=== PATIENT | female | born 1955 | race Hispanic/Latino ===

== ENCOUNTER → 2017-10-10 | Outpatient (CLI) | payer OTHER ==
[2017-10-10 05:54] LABS: HEMOGLOBIN A1C 6.1 % (4.0-6.0)
== END | disposition home or self-care (01) ==
LOC: LAB 00:17
PROVIDERS: ATTEND Internal Medicine Nephrology
DX: E11.9 Type 2 diabetes mellitus without complications (principal)
CPT/HCPCS: 36415; 80061; 83036

== ENCOUNTER 2020-09-14 21:00 | Inpatient (IN) | payer OTHER ==
[~2020-09-14] VITALS: Ht 162.6 cm; Wt 69.9 kg
[2020-09-14 21:22] LABS: BASOPHILS % (AUTO) 0.6 % (0.0-5.0); HEMATOCRIT 39.3 % (36-48); LYMPHOCYTES % (AUTO) 13.4 % (21.0-51.0); MEAN CORPUSCULAR HEMOGLOBIN 32.3 pg (27.0-33.0); MEAN CORPUSCULAR HGB CONC 33.6 g/dL (32.0-36.0); MEAN CORPUSCULAR VOLUME 96.1 fL (79-99); MONOCYTES % (AUTO) 7.3 % (3.0-13.0); NEUTROPHILS % (AUTO) 76.1 % (40.0-77.0); PLATELET COUNT (AUTO) 185 K/uL (130-400); RED BLOOD CELL COUNT(AUTO) 4.09 MIL/uL (4.00-5.50); RED CELL DISTRIBUTION WIDTH 12.4 % (11.0-15.5); WHITE BLOOD COUNT (AUTO) 10.6 K/uL (4.8-10.8)
[2020-09-14 21:31] LABS: CREATININE 0.9 mg/dL (0.5-1.5); POTASSIUM 3.9 mmol/L (3.5-5.1)
[2020-09-14] MEDS ORDERED: CLONIDINE HCL 0.1 MG TABLET ONE (21:33)
[2020-09-14 21:34] LABS: INR 1.07 (0.85-1.15); PROTHROMBIN TIME 11.4 SEC (9.6-11.6)
[2020-09-14 21:35] LABS: PARTIAL THROMBOPLASTIN TIME 20.4 SEC (26.3-35.5)
[2020-09-14 21:43] LABS: ALBUMIN 3.6 g/dL (3.5-5.0); BILIRUBIN,TOTAL 0.6 mg/dL (0.2-1.0)
[2020-09-14 22:21] LABS: APPEARANCE,URINE Clear (CLEAR); BILIRUBIN,URINE Negative (NEGATIVE); COLOR,URINE Yellow (YELLOW); GLUCOSE, URINE (UA) Negative (NEGATIVE); KETONES,URINE Negative (NEGATIVE); LEUKOCYTE ESTERASE ,URINE Negative (NEGATIVE); NITRATE,URINE Negative (NEGATIVE); OCCULT BLOOD,URINE Negative (NEGATIVE); PROTEIN,URINE Negative (NEGATIVE)
[2020-09-15] MEDS ORDERED: NITROGLYCERIN 1GM/1 INCH PACKET TD ONE (01:44)
[2020-09-15] MEDS ORDERED: ENOXAPARIN SODIUM 60 MG/0.6 ML SQ ONE (01:44)
[2020-09-15 06:15] VITALS: BP 159/77
[2020-09-15] MEDS ORDERED: DEXTROSE 50%-WATER 50 ML DISP.SYRIN IV PRN (07:00)
[2020-09-15] MEDS ORDERED: GLUCAGON 1MG KIT 1 MG ML IM PRN (07:00)
[2020-09-15] MEDS: INSULIN HUMULIN R 100 UNIT/ML 3ML SQ SCH ×4 (07:30→21:00)
[2020-09-15 08:00] VITALS: BP 133/74
[2020-09-15] MEDS ORDERED: GLIP5POW MC (08:21)
[2020-09-15] MEDS ORDERED: LISI-613 PO (08:21)
[2020-09-15] MEDS ORDERED: METOPROLOL TARTRATE 25 MG TAB PO SCH (08:30)
[2020-09-15] MEDS ORDERED: METOPROLOL TARTRATE 25 MG TAB ONE (08:37)
[2020-09-15] MEDS: ASPIRIN 325MG EC TAB 325 MG TABLET.DR PO SCH (08:41)
[2020-09-15] MEDS: ENOXAPARIN SODIUM 80 MG/0.8 ML SQ SCH ×2 (08:42→08:47)
[2020-09-15] MEDS: FAMOTIDINE/PF 20 MG/2 ML VIAL IV SCH ×2 (08:42→21:18)
[2020-09-15] MEDS ORDERED: ENOXAPARIN SODIUM 1 MG/KG SQ SCH (10:00)
[2020-09-15] MEDS: CLOPIDOGREL BISULFATE 75 MG TAB PO SCH (11:00)
[2020-09-15 11:58] VITALS: BP 145/77
--- NOTE | 2020-09-15 12:00 | NUR ---
DCP CM met with pt in room discussed dc plans. Pt is independent prior to admission, lives at home with spouse. Denies any equipments/services. Feels safe to go back home, still drives and works, spouse able to assist with transportation and needs as necessary. DC plan to home once stable. CM to continue to follow up. Addendum: 09/15/20 at 1558 by ANDREA EUBANKS LVN CM Amended: Links added.
[2020-09-15] MEDS: PHARMACY COMMUNICATION MISC SCH ×2 (12:15→14:15)
[2020-09-15] MEDS ORDERED: SODIUM CHLORIDE 0.9% 500ML 500 ML IV ONE (14:02)
[2020-09-15] MEDS: LISINOPRIL 20 MG TABLET PO SCH (14:49)
[2020-09-15] MEDS: METOPROLOL TARTRATE 25 MG TAB PO SCH ×2 (14:51→21:17)
[2020-09-15 15:47] VITALS: BP 129/71
[2020-09-15 20:05] VITALS: BP 118/67
[2020-09-15] MEDS ORDERED: ATORVASTATIN CALCIUM 20 MG TABLET PO SCH (21:00)
[2020-09-15 23:49] VITALS: BP 118/68
--- NOTE | 2020-09-15 23:56 | NUR ---
Pt's 2100 BS was 178, based on sliding scale pt needed 4units of Humulin but pt refused.
[2020-09-16] VITALS (10 sets, daily range): BP systolic 114–141; BP diastolic 67–93
[2020-09-16] MEDS: ASPIRIN 325MG EC TAB 325 MG TABLET.DR PO SCH (03:10)
[2020-09-16] MEDS: METOPROLOL TARTRATE 25 MG TAB PO SCH ×2 (03:15→09:00)
[2020-09-16 05:12] LABS: HEMATOCRIT 40.5 % (36-48); MEAN CORPUSCULAR HEMOGLOBIN 32.1 pg (27.0-33.0); MEAN CORPUSCULAR HGB CONC 33.3 g/dL (32.0-36.0); MEAN CORPUSCULAR VOLUME 96.2 fL (79-99); RED BLOOD CELL COUNT(AUTO) 4.21 MIL/uL (4.00-5.50); RED CELL DISTRIBUTION WIDTH 12.3 % (11.0-15.5); WHITE BLOOD COUNT (AUTO) 6.4 K/uL (4.8-10.8)
[2020-09-16 05:45] LABS: CREATININE 0.8 mg/dL (0.5-1.5); POTASSIUM 3.9 mmol/L (3.5-5.1)
[2020-09-16] MEDS ORDERED: LIDOCAINE HCL 2% 20ML ONE (07:24)
[2020-09-16] MEDS ORDERED: IOHEXOL-350 50ML VIAL IV ONE ×2 (07:24→08:57)
[2020-09-16] MEDS ORDERED: MIDAZOLAM HCL 1 MG/ML 2ML VIAL ONE (07:24)
[2020-09-16] MEDS ORDERED: IOHEXOL 350 MG/ML 100ML INFUS..BTL IV ONE (07:24)
[2020-09-16] MEDS ORDERED: FENTANYL CITRATE PF 50 MCG/1 ML 2ML VIAL ONE (07:24)
[2020-09-16] MEDS ORDERED: HEPARIN SODIUM 1000UNIT/ML 10ML VIAL ONE (07:24)
[2020-09-16] MEDS ORDERED: NITROGLYCERIN 2 MG/VIAL VIAL IV ONE (07:25)
[2020-09-16] MEDS ORDERED: NICARDIPINE HCL 25 MG/10 ML ML IV ONE (07:26)
[2020-09-16] MEDS: INSULIN HUMULIN R 100 UNIT/ML 3ML SQ SCH ×2 (07:30→11:30)
[2020-09-16] MEDS: ENOXAPARIN SODIUM 80 MG/0.8 ML SQ SCH (09:00)
[2020-09-16] MEDS ORDERED: SODIUM CHLORIDE 0.9% 1000ML 1,000 ML IV SCH (09:30)
--- NOTE | 2020-09-16 09:50 | NUR ---
RECEIVED PT FROM [facility] AAOX3, NO DISTRESS, NO BLEEDING FORM RIGHT RADIAL ACCESS. HEMOSTASIS ACHIEVED WITH BAND. IV PATENT, NO SWELLING.
[2020-09-16] MEDS ORDERED: ISOSORBIDE MONO 30MG TAB SR PO ONE (11:44)
[2020-09-16] MEDS: FAMOTIDINE/PF 20 MG/2 ML VIAL IV SCH (11:50)
[2020-09-16] MEDS: CLOPIDOGREL BISULFATE 75 MG TAB PO SCH (11:50)
[2020-09-16] MEDS: LISINOPRIL 20 MG TABLET PO SCH (11:54)
[2020-09-16] MEDS ORDERED: ISOSORBIDE MONO 30MG TAB SR PO SCH (11:57)
--- NOTE | 2020-09-16 14:30 | NUR ---
12mls of air removed from band band discontinued radial pulses present bilaterally, strong and regular. no bleeding.
--- NOTE | 2020-09-16 16:00 | NUR ---
6 HOURS OF HYDRATION COMPLETE IV OUT DISCONTINUED, NO BLEEDING.
--- NOTE | 2020-09-16 16:19 | NUR ---
PT D/C HOME USING TEACH BACK TECHNIQUE RE; NEW MEDS HOME MEDS, S/S TO WATCH FOR AND WHEN TO CALL MD OR 911. Follow up with Dr. Vargas in 1-2 weeks. follow up with your primary doctor in 2-4 days. for transition of care. Make sure to monitor for any signs of bleeding and if bleeding occurs apply direct pressure and call 911. If you experience any chest pain or shortness of breath that does not resolve with rest call 911. make sure to buy prescription given to you by your quality cloth tester at the time of discharge. Call him with any other questions. IV OUT, NO BLEEDING, NO BLEEDING FROM RIGHT RADIAL ARTERY 4X4S AND TAPE APPLIED, BILATERAL RADIAL ARTERY STRONG AND REGULAR. TELE REMOVED. PATIENT AAOX3, DENIES ANY QUESTIONS AT THIS TIME, AT BEDSIDE ALSO ATTENTIVE OF D/C INSTRUCTIONS.
[2020-09-17] MEDS ORDERED: ASPIRIN 81 MG EC TAB PO SCH (09:00)
== END 2020-09-16 16:40 | disposition home or self-care (01) | DRG 282 ==
LOC: EDH 21:00 → OBSVTOIN 21:01 → EDHIP 21:01 → 4CH 09-15 06:18
PROVIDERS: ADMIT Internal Medicine Pulmonary Disease; ATTEND Internal Medicine Pulmonary Disease
PROC: 4A023N7 Measurement of Cardiac Sampling and Pressure, Left Heart, Percutaneous Approach (ICD-10-PCS; principal; 2020-09-16)
PROC: B2111ZZ Fluoroscopy of Multiple Coronary Arteries using Low Osmolar Contrast (ICD-10-PCS; 2020-09-16)
PROC: B2151ZZ Fluoroscopy of Left Heart using Low Osmolar Contrast (ICD-10-PCS; 2020-09-16)
DX: I21.4 Non-ST elevation (NSTEMI) myocardial infarction (principal); I20.0 Unstable angina; I10 Essential (primary) hypertension; E11.9 Type 2 diabetes mellitus without complications; Z20.828 Contact with and (suspected) exposure to other viral communicable diseases; Z79.899 Other long term (current) drug therapy; Z82.49 Family history of ischemic heart disease and other diseases of the circulatory system
CPT/HCPCS: 36415; 71045; 80048; 80053; 81003; 82550; 82948; 83880; 84484; 85025; 85027; 85610; 85730; 87426; 93005; 93306; 93356; 93458; 99156; 99157; G0378; J1644; J1650; J1815; J2250; J3010; J3490; J7040; Q9967; U0003

== ENCOUNTER 2023-10-21 10:38 | Observation (INO) | payer OTHER ==
[2023-10-17 13:08] VITALS: BP 131/67; PULSE 90; RESP 15
[2023-10-17 13:23] LABS: BASOPHILS # (AUTO) 0.05 K/uL (0.00-0.20); BASOPHILS % (AUTO) 0.9 % (0.0-5.0); EOSINOPHILS # (AUTO) 0.09 K/uL (0.00-0.70); EOSINOPHILS % (AUTO) 1.6 % (0.0-8.0); HEMATOCRIT 42.1 % (36-48); IMMATURE GRANULOCYTE ABSOLUTE 0.02 K/uL (0-1); LYMPHOCYTES # (AUTO) 1.7 K/uL (1.0-4.8); LYMPHOCYTES % (AUTO) 29.7 % (21.0-51.0); MEAN CORPUSCULAR HEMOGLOBIN 31.7 pg (27.0-33.0); MEAN CORPUSCULAR VOLUME 96.1 fL (79-99); MONOCYTES # (AUTO) 0.4 K/uL (0.1-1.0); NEUTROPHILS # (AUTO) 3.4 K/uL (1.8-7.7); NEUTROPHILS % (AUTO) 60.4 % (40.0-77.0); PLATELET COUNT (AUTO) 338 K/uL (130-400); RED BLOOD CELL COUNT(AUTO) 4.38 MIL/uL (4.00-5.50); RED CELL DISTRIBUTION WIDTH 11.9 % (11.0-15.5); WHITE BLOOD COUNT (AUTO) 5.6 K/uL (4.8-10.8)
[2023-10-17 13:36] LABS: CREATININE 0.6 mg/dL (0.5-1.5)
[2023-10-21] VITALS (12 sets, daily range): BP systolic 113–151; BP diastolic 62–77; PULSE 60–84; RESP 17–21; O2SAT 100
[~2023-10-21] VITALS: Ht 162.6 cm; Wt 68.0 kg
[~2023-10-21 10:38] MED LIST: GLIP5TAB15 PO; LISI20TA24 PO; METF-444 PO; ROSU20TA73 PO
[2023-10-21] MEDS ORDERED: 0.9%NACL 1000ML 1,000 ML IV ONE (11:46)
[2023-10-21] MEDS: CEFAZOLIN SODIUM 2 GM VIAL ONE ×2 (13:00→14:20)
[2023-10-21] MEDS ORDERED: PROPOFOL 10 MG/ML 20ML VIAL IV ONE (13:51)
[2023-10-21] MEDS ORDERED: MIDAZOLAM HCL 1 MG/ML 2ML VIAL ONE (13:52)
[2023-10-21] MEDS ORDERED: FENTANYL CITRATE PF 50 MCG/1 ML 2ML VIAL ONE ×3 (13:52→16:32)
[2023-10-21] MEDS ORDERED: ROCURONIUM BROMIDE 10MG/1ML 5ML VL ONE (13:58)
[2023-10-21] MEDS ORDERED: ROPIVACAINE 0.5% 5MG/ML 30ML ONE (13:59)
[2023-10-21] MEDS ORDERED: DEXAMETHASONE SOD PHOSPHATE 10MG/ML 1ML VIAL ONE (14:10)
[2023-10-21] MEDS ORDERED: PHENYLEPHRINE HCL 10 MG/ML 1ML VIAL IV ONE (14:23)
[2023-10-21] MEDS ORDERED: GLYCOPYRROLATE 0.2 MG/ML 5 ML VIAL ONE (14:51)
[2023-10-21] MEDS ORDERED: ONDANSETRON 4MG INJ ONE (15:19)
[2023-10-21] MEDS ORDERED: KETOROLAC 30MG VIAL (30MG/ML) ONE (16:12)
[2023-10-21] MEDS ORDERED: NEOSTIGMINE METHYLSULFATE 1MG/ML IV ONE (16:14)
[2023-10-21] MEDS ORDERED: MEPERIDINE-PF 25 MG/ML SYG ONE (17:03)
[2023-10-21] MEDS: CEFAZOLIN SODIUM 2 GM VIAL IVPB SCH (20:13)
[2023-10-21] MEDS ORDERED: HYDROMORPHONE 1 MG INJ IV PRN (23:00)
[2023-10-21] MEDS ORDERED: KCL 20 MEQ ERTAB PO PRN (23:00)
[2023-10-21] MEDS ORDERED: POTASSIUM CHLORIDE 10% ELIXIR 20 MEQ/15 ML UDCUP PO PRN (23:00)
[2023-10-21] MEDS ORDERED: POTASSIUM CHLORIDE 20MEQ/100ML 100 ML IV PRN (23:00)
[2023-10-21] MEDS ORDERED: ACETAMINOPHEN 325 MG TAB PO PRN ×2 (23:00)
[2023-10-21] MEDS ORDERED: ONDANSETRON 4MG INJ IV PRN (23:00)
[2023-10-21] MEDS ORDERED: MAGNESIUM 2GM PREMIX 50ML 50 ML IV PRN (23:00)
[2023-10-22 04:10] LABS: BASOPHILS # (AUTO) 0.02 K/uL (0.00-0.20); BASOPHILS % (AUTO) 0.2 % (0.0-5.0); HEMATOCRIT 36.2 % (36-48); IMMATURE GRANULOCYTE ABSOLUTE 0.05 K/uL (0-1); LYMPHOCYTES # (AUTO) 0.7 K/uL (1.0-4.8); LYMPHOCYTES % (AUTO) 7.9 % (21.0-51.0); MEAN CORPUSCULAR HEMOGLOBIN 32.5 pg (27.0-33.0); MEAN CORPUSCULAR VOLUME 95.8 fL (79-99); MONOCYTES # (AUTO) 0.4 K/uL (0.1-1.0); MONOCYTES % (AUTO) 4.2 % (3.0-13.0); NEUTROPHILS # (AUTO) 8.1 K/uL (1.8-7.7); NEUTROPHILS % (AUTO) 87.2 % (40.0-77.0); PLATELET COUNT (AUTO) 269 K/uL (130-400); RED BLOOD CELL COUNT(AUTO) 3.78 MIL/uL (4.00-5.50); RED CELL DISTRIBUTION WIDTH 11.4 % (11.0-15.5); WHITE BLOOD COUNT (AUTO) 9.3 K/uL (4.8-10.8)
[2023-10-22 04:22] LABS: CREATININE 0.7 mg/dL (0.5-1.5); PHOSPHORUS 3.6 mg/dL (2.5-4.9)
[2023-10-22 04:24] VITALS: BP 133/85; PULSE 94; RESP 20
[2023-10-22 04:35] LABS: HEMOGLOBIN A1C 6.4 % (4.0-6.0)
[2023-10-22] MEDS: CEFAZOLIN SODIUM 2 GM VIAL IVPB SCH ×2 (05:00→12:23)
[2023-10-22] MEDS: INSULIN HUMULIN R 100 UNIT/ML 3ML SQ SCH ×3 (06:12→16:25)
[2023-10-22 07:30] VITALS: BP 129/76; PULSE 91; RESP 16
[2023-10-22 08:00] VITALS: O2SAT 97
[2023-10-22] MEDS ORDERED: LISINOPRIL 20 MG TABLET PO SCH (09:00)
[2023-10-22] MEDS ORDERED: FAMOTIDINE 20MG TAB PO SCH (09:00)
[2023-10-22] MEDS ORDERED: ENOXAPARIN SODIUM 40 MG/0.4 ML SYRINGE SQ SCH (09:00)
[2023-10-22] MEDS: HYDROCODONE/ACETAMINOPHEN 5/325 MG TAB PO PRN ×2 (10:24→15:27)
[2023-10-22 10:40] VITALS: BP 119/70; PULSE 89; RESP 16
[2023-10-22 16:00] VITALS: BP 144/72; PULSE 75; RESP 16
[2023-10-22] MEDS ORDERED: ATORVASTATIN 40 MG TABLET PO SCH (21:00)
== END 2023-10-22 19:07 | disposition home or self-care (01) ==
LOC: DAH 10:38 → DAHIP 10:39 → DAH 10:39 → 2AH 17:38
PROVIDERS: ADMIT Internal Medicine; ATTEND Internal Medicine
DX: S82.871B Displaced pilon fracture of right tibia, initial encounter for open fracture type I or II (principal); S82.831A Other fracture of upper and lower end of right fibula, initial encounter for closed fracture; E11.9 Type 2 diabetes mellitus without complications; I10 Essential (primary) hypertension; E78.5 Hyperlipidemia, unspecified; Z79.899 Other long term (current) drug therapy; Z79.84 Long term (current) use of oral hypoglycemic drugs; Z79.4 Long term (current) use of insulin; W19.XXXA Unspecified fall, initial encounter; Y93.89 Activity, other specified; Y92.89 Other specified places as the place of occurrence of the external cause; Y99.8 Other external cause status
CPT/HCPCS: 80048 ×2; 85025 ×2; 36415 ×2; 71045; 93005; 27758; 96374; 82948 ×6; 73610; 96376; 96372; 96375; 83036; 83735; 84100; 97161; 97116; 97530 ×2; A6260; G0378 ×23; A4663; Q4050; C1713 ×8; A4649 ×3; J3010 ×3; J1100; J7030; J3490 ×2; J2250; J2704; J2405; J1885; J2710; J2175; J2795; J2371; J0690 ×3; A6223; A4930 ×2; C1776; A4215; A4223; A4222; A4221; J1815; J1170; J1650

== ENCOUNTER → 2025-02-07 | Outpatient (CLI) | payer OTHER ==
[~2025-02-07] MED LIST changes: -ROSU20TA73 PO; +ROSU20TA98 PO
--- NOTE | 2025-02-08 09:09 | HMCIMG ---
Exam Type: MAMMO SCREENING BILATERAL Clinical Information: ROUTINE SCREENING Comparison: April 21, 2016 Technique: Mammogram with CAD was performed with CC and MLO projections. CAD shows no worrisome regions. FINDINGS: The breasts are heterogeneously dense, which may obscure small masses. No dominant mass or suspicious microcalcification identified. There is no nipple retraction or skin thickening. Benign-appearing calcifications are seen. CAD shows no worrisome regions. IMPRESSION: 1. No mammographic signs of malignancy. 2. Routine follow-up recommended. CATEGORY 2: BENIGN FINDINGS Note: A negative x-ray should not delay biopsy if a dominant or clinically suspicious mass is present, since 8-10% of cancers are not identified by mammography. Dense breasts may obscure an underlying neoplasm.
== END | disposition home or self-care (01) ==
LOC: RAH 13:10
PROVIDERS: ATTEND Obstetrics & Gynecology
DX: Z12.31 Encounter for screening mammogram for malignant neoplasm of breast (principal); R92.333 Mammographic heterogeneous density, bilateral breasts
CPT/HCPCS: 77067